=== PATIENT | female | born 1975 | race Caucasian/White ===

== ENCOUNTER 2020-02-09 17:21 | Inpatient (IN) | payer SELFPAY ==
[~2020-02-09] VITALS: Ht 152.4 cm; Wt 93.0 kg
--- NOTE | 2020-02-09 17:38 | EKG ---
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
[2020-02-09 17:53] LABS: BASO % 0 % (0-3); EOS # 0.2 x10^3/uL (0.0-0.7); EOS % 3 % (0-3); HEMATOCRIT 42.6 % (36.0-47.0); LYMPH # 1.7 x10^3/uL (1.0-4.8); LYMPH % 24 % (24-48); MEAN CORPUSCULAR HEMOGLOBIN 30 pg (25-35); MEAN CORPUSCULAR HGB CONC 33 g/dL (31-37); MEAN CORPUSCULAR VOLUME 91 fL (79-100); MONO # 0.4 x10^3/uL (0.0-1.1); MONO % 5 % (0-9); NEUT # 4.8 x10^3uL (1.8-7.7); NEUT % 67 % (31-73); PLATELET COUNT 241 x10^3/uL (140-400); RED BLOOD COUNT 4.67 x10^6/uL (3.50-5.40); RED CELL DISTRIBUTION WIDTH 14.1 % (11.5-14.5); WHITE BLOOD COUNT 7.1 x10^3/uL (4.0-11.0)
[2020-02-09 18:41] LABS: CALCIUM 9.1 mg/dL (8.5-10.1); CREATININE 0.9 mg/dL (0.6-1.0); GFR 67.7; POTASSIUM 3.6 mmol/L (3.5-5.1)
--- NOTE | 2020-02-09 18:46 | PHYS DOC ---
Past History Past Medical History: No Pertinent History Past Surgical History: , Hysterectomy, Knee Replacement Alcohol Use: None Adult General Chief Complaint Chief Complaint: CHEST PAIN [facility] HPI Patient is a 44-year-old female who presents for chest pain. This is an acute on chronic phenomena. Patient reports having episodes of substernal chest pain that is sharp in nature without radiation that is waxed and waned for past 3 weeks. Reports episode today came on while at rest and has not dissipated. Nothing known makes better, activity makes worse. Patient has history of pericardial effusion which required pericardiocentesis approximately 2 years ago, she is uncertain of her of the source and/or cause of said pericardial effusion. She denies any invasive cardiac work-up in the past such as catheterization, she is unsure of past echocardiogram findings. She also admits to extensive family medical history of cardiovascular disease, reports numerous family members have had early cardiac deaths less than 60 years old and absence of any drug use. She does not have a history of passing out with physical activity, denies any tobacco or alcohol use or other illicit drug use Review of Systems Review of Systems Fourteen body systems of review of systems have been reviewed. See HPI for pertinent positives and negative responses, other roldan all other systems are negative, non-pertinent or non-contributory Allergies Allergies Allergies Coded Allergies Type Severity Reaction Last Updated Verified naproxen Allergy Unknown 02/09/20 Yes prednisone Allergy Unknown 02/09/20 Yes Physical Exam Physical Exam Constitutional: Well developed, well nourished, no acute distress, non-toxic appearance. HENT: Normocephalic, atraumatic, bilateral external ears normal, oropharynx moist, no oral exudates, nose normal. Eyes: PERRLA, EOMI, conjunctiva normal, no discharge. Neck: Normal range of motion, no tenderness, supple, no stridor. Cardiovascular: Heart rate regular, sinus rhythm, no murmurs rubs or gallops, chest wall nontender to palpation Lungs & Thorax: Bilateral breath sounds clear to auscultation Abdomen: Bowel sounds normal, soft, no tenderness, no masses, no pulsatile masses. Nonsurgical abdomen, no peritoneal signs Skin: Warm, dry, no erythema, no rash. Back: No tenderness, no CVA tenderness. Extremities: No tenderness, no cyanosis, no clubbing, ROM intact, no edema. Neurologic: Alert and oriented X 3, grossly normal motor & sensory function, no focal deficits noted. Psychologic: Affect normal, judgement normal, mood normal. Current Patient Data Vital Signs Vital Signs Date Time Temp Pulse Resp B/P (MAP) Pulse Ox O2 Delivery O2 Flow Rate FiO2 02/09/20 17:28 98.2 64 14 147/85 (105) 99 Room Air Lab Results Laboratory Tests Test 02/09/20 17:30 White Blood Count 7.1 x10^3/uL (4.0-11.0) Red Blood Count 4.67 x10^6/uL (3.50-5.40) Hemoglobin 14.0 g/dL (12.0-15.5) Hematocrit 42.6 % (36.0-47.0) Mean Corpuscular Volume 91 fL (79-100) Mean Corpuscular Hemoglobin 30 pg (25-35) Mean Corpuscular Hemoglobin Concent 33 g/dL (31-37) Red Cell Distribution Width 14.1 % (11.5-14.5) Platelet Count 241 x10^3/uL (140-400) Neutrophils (%) (Auto) 67 % (31-73) Lymphocytes (%) (Auto) 24 % (24-48) Monocytes (%) (Auto) 5 % (0-9) Eosinophils (%) (Auto) 3 % (0-3) Basophils (%) (Auto) 0 % (0-3) Neutrophils # (Auto) 4.8 x10^3uL (1.8-7.7) Lymphocytes # (Auto) 1.7 x10^3/uL (1.0-4.8) Monocytes # (Auto) 0.4 x10^3/uL (0.0-1.1) Eosinophils # (Auto) 0.2 x10^3/uL (0.0-0.7) Basophils # (Auto) 0.0 x10^3/uL (0.0-0.2) Sodium Level 142 mmol/L (136-145) Potassium Level 3.6 mmol/L (3.5-5.1) Chloride Level 106 mmol/L (98-107) Carbon Dioxide Level 29 mmol/L (21-32) Anion Gap 7 (6-14) Blood Urea Nitrogen 7 mg/dL (7-20) Creatinine 0.9 mg/dL (0.6-1.0) Estimated GFR (Cockcroft-Gault) 67.7 BUN/Creatinine Ratio 8 (6-20) Glucose Level 97 mg/dL (70-99) Calcium Level 9.1 mg/dL (8.5-10.1) Total Bilirubin Pending Aspartate Amino Transferase (AST) Pending Alanine Aminotransferase (ALT) Pending Alkaline Phosphatase Pending Total Protein Pending Albumin Pending Albumin/Globulin Ratio Pending EKG EKG EKG ordered and interpreted by off going physician and confirmed by myself as sinus rhythm at 65 bpm, unremarkable intervals, left axis deviation, no ischemic findings, no STEMI Radiology/Procedures Radiology/Procedures PROCEDURE: CHEST AP ONLY Exam: Chest one view INDICATION: Chest pain TECHNIQUE: Frontal view of the chest Comparisons: None FINDINGS: Heart is mildly enlarged. Pulmonary vessels are within normal limits. The lung and pleural spaces are clear. IMPRESSION: No acute pulmonary process. Electronically signed by: Antonio Black MD (02/09/2020 7:08 PM) [facility] Heart Score HEART Score for Chest Pain: HEART Score for Chest Pain Response (Comments) Value History Moderately Suspicious 1 ECG Normal 0 Age >45 - < 65 1 Risk Factors >3 Risk Factors or Hx CAD 2 Troponin < Normal Limit 0 Total 4 Risk Factors: Risk Factors: DM, Current or recent (<one month) smoker, HTN, HLP, family history of CAD, obesity. Risk Scores: Risk Factors: DM, Current or recent (<one month) smoker, HTN, HLP, family history of CAD, obesity. Course & Med Decision Making Course & Med Decision Making Ambulatory generally nontoxic appearing patient seen on ER arrival ABCs nonconcerning Comprehensive history and physical exam obtained, subsequent diagnostic work-up ordered Patient continued to be symptomatic throughout visit without any obvious cause of chest pain I discussed grossly negative work-up with patient but given risk, joint decision was made to admit for overnight cardiovascular observation with consideration for cardiology consultation in the morning Dr. Gomez was contacted and case discussed, he agreed to admit patient for continued medical management at [facility] Patient updated on this and was agreeable, all questions and concerns addressed prior to ER departure to [facility] for observation in stable condition Zeke Disclaimer Dragon Disclaimer This electronic medical record was generated, in whole or in part, using a voice recognition dictation system. Departure Departure: Impression: Primary Impression: Chest pain, rule out acute myocardial infarction Disposition: 09 ADMITTED INPT THIS HOSP ([facility]) Admitting Physician: Dank Gomez Condition: STABLE Referrals: PCP,NO (PCP) JOSI SWANN DO Feb 09, 2020 18:46
[2020-02-09 18:47] LABS: ALBUMIN 3.5 g/dL (3.4-5.0); ALBUMIN/GLOBULIN RATIO 0.9 (1.0-1.7); TOTAL BILIRUBIN 0.2 mg/dL (0.2-1.0); TOTAL PROTEIN 7.3 g/dL (6.4-8.2)
--- NOTE | 2020-02-09 19:11 | RAD ---
Exam: Chest one view INDICATION: Chest pain TECHNIQUE: Frontal view of the chest Comparisons: None FINDINGS: Heart is mildly enlarged. Pulmonary vessels are within normal limits. The lung and pleural spaces are clear. IMPRESSION: No acute pulmonary process. Electronically signed by: Antonio Black MD (02/09/2020 7:08 PM) MARY
[2020-02-09] MEDS ORDERED: ACETAMINOPHEN 325 MG TABLET PO ONE ×2 (19:30→19:36)
[2020-02-09] MEDS ORDERED: ONDANSETRON PF 4 MG/2 ML VIAL. IVP PRN (20:00)
[2020-02-09] MEDS ORDERED: NITROGLYCERIN SUBLINGUAL 0.4 MG BOTTLE OF 25. SL PRN (20:00)
[2020-02-09] MEDS ORDERED: ACETAMINOPHEN 325 MG TABLET PO PRN (20:00)
--- NOTE | 2020-02-09 21:08 | NUR ---
Pt admitted to 117 via EMS accompanied by ED staff. Pt was able to ambulate from gurney to bed w/o difficulty. During assessment pt. had complaints of chest pain. Pain rated 8/[address] notified, 4mg Morphine PRN Q4hrs ordered. Pt appears to be calm and cooperative during assessment. POC discussed w/ verbal understanding. Pt orientated to . Call light is now in reach and will continue to monitor.
[2020-02-09 21:28] VITALS: BP 112/76
[2020-02-09] MEDS: MORPHINE SULFATE 4 MG/ML DISP.SYRIN. IV PRN (22:13)
[2020-02-09 23:11] VITALS: BP 110/76
[2020-02-10] MEDS: MORPHINE SULFATE 4 MG/ML DISP.SYRIN. IV PRN (02:23)
[2020-02-10 04:55] VITALS: BP 106/72
[2020-02-10] MEDS ORDERED: ASPIRIN CHEWABLE 81 MG TABLET. PO SCH (08:00)
[2020-02-10] MEDS ORDERED: FLU VACC QS 2020-21(6MOS+)/PF 0.5 ML SYRINGE. VAX IM ONE (08:00)
--- NOTE | 2020-02-10 10:02 | NUR ---
NURSING NOTE CONSULT WAS TOLD IN REPORT THAT CONSULT WAS CALLED, NO ORDER FOR CONSULT CARDIOLOGY. JACQUELINE OCHOA NOTIFIED, HERE TO EVALUATE PT. ORDER PLACED FOR CHEST PAIN. AUDREY COREA.
--- NOTE | 2020-02-10 10:07 | PDOC2 ---
CARDIAC CONSULT DATE OF CONSULT DOS: DATE: 02/10/20 TIME: 10:02 REASON FOR CONSULT Reason for Consult Chest pain REFERRING PHYSICIAN Referring Physician Dr. Head SOURCE Source: Chart review, Patient HPI History of Present Illness This is a yo female who presented secondary to chest pain. Patient reports pain has been intermittent for the last week. Was worse yesterday, so she came into the ED for further evaluation and treatment. Located in her left chest and under her left breast. Describes as sharp, stabbing pain. Associated with mild SOA. No dizziness, diaphoresis, palpitations, or nausea/vomiting. No specific worsening or relieving factors. Reports history of pericarditis/pericardial effusion s/p peric ardiocentesis/drain placement. Patients reports pain to be very similar to what she experienced previously with pericarditis. Was treated at [facility] on the [address] 2 years ago. Unfortunately, does no have insurance coverage and has not followed up with their data governance analyst team. Medication also ran out and she has not had them refilled. PAST MEDICAL HISTORY Cardiovascular: Other (pericardial effusion requiring pericardiocentesis ) Pulmonary: Other (JACOB not compliant with CPAP) Heme/Onc: Cancer (uterine ) PAST SURGICAL HISTORY Past Surgical History: Hysterectomy FAMILY HISTORY Family History: Heart Disease SOCIAL HISTORY Smoke: No ALCOHOL: none Drugs: None Lives: with Family CURRENT MEDICATIONS Current Medications Current Medications Acetaminophen (Tylenol) 650 mg 1X ONCE PO Last administered on 02/09/20at 19:30; Start 02/09/20 at 19:30; Stop 02/09/20 at 19:36; Status DC Acetaminophen (Tylenol) 325 mg STK-MED ONCE PO ; Start 02/09/20 at 19:36; Stop 02/09/20 at 19:36; Status DC Ondansetron HCl (Zofran) 4 mg PRN Q4HRS PRN IVP NAUSEA/VOMITING; Start 02/09/20 at 20:00; Stop 02/10/20 at 19:59 Acetaminophen (Tylenol) 650 mg PRN Q4HRS PRN PO FEVER > 100.3'F; Start 02/09/20 at 20:00; Stop 02/10/20 at 19:59 Nitroglycerin (Nitrostat) 0.4 mg PRN Q5MIN PRN SL CHEST PAIN; Start 02/09/20 at 20:00; Stop 02/10/20 at 19:59 Morphine Sulfate (Morphine 4mg Syringe) 4 mg PRN Q4HRS PRN IV PAIN Last administered on 02/10/20at 02:23; Start 02/09/20 at 22:00 Aspirin (Aspirin Chewable) 81 mg DAILYWBKFT PO Last administered on 02/10/20at 08:33; Start 02/10/20 at 08:00 Influenza Virus Vaccine Quadrival (Fluzone Quad [id number] Syringe) 0.5 ml ONCE ONCE VAX IM Last administered on 02/10/20at 08:33; Start 02/10/20 at 08:00; Stop 02/10/20 at 08:01; Status DC ALLERGIES Allergies: Coded Allergies: naproxen (Verified Allergy, Unknown, 02/09/20) prednisone (Verified Allergy, Unknown, 02/09/20) ROS Review of Systems 14 point ROS conducted with pertinent positives noted above in hPI PHYSICAL EXAM General: Alert, Oriented X3, Cooperative, No acute distress HEENT: Atraumatic, Mucous membr. moist/pink Lungs: Clear to auscultation, Other (left chest tenderness upon palpitation) Heart: Regular rate Abdomen: Soft, No tenderness Extremities: No edema, Normal pulses Skin: No breakdown Neuro: Normal speech, Sensation intact Psych/Mental Status: Mental status NL, Mood NL MUSCULOSKELETAL: No deformity VITALS Vital Signs Vital Signs Date Time Temp Pulse Resp B/P (MAP) Pulse Ox O2 Delivery O2 Flow Rate FiO2 02/10/20 08:48 Room Air 02/10/20 04:55 98.0 60 20 106/72 (83) 97 LABS LABS Laboratory Tests Test 02/09/20 17:30 02/09/20 22:23 02/10/20 03:15 White Blood Count 7.1 x10^3/uL (4.0-11.0) Red Blood Count 4.67 x10^6/uL (3.50-5.40) Hemoglobin 14.0 g/dL (12.0-15.5) Hematocrit 42.6 % (36.0-47.0) Mean Corpuscular Volume 91 fL (79-100) Mean Corpuscular Hemoglobin 30 pg (25-35) Mean Corpuscular Hemoglobin Concent 33 g/dL (31-37) Red Cell Distribution Width 14.1 % (11.5-14.5) Platelet Count 241 x10^3/uL (140-400) Neutrophils (%) (Auto) 67 % (31-73) Lymphocytes (%) (Auto) 24 % (24-48) Monocytes (%) (Auto) 5 % (0-9) Eosinophils (%) (Auto) 3 % (0-3) Basophils (%) (Auto) 0 % (0-3) Neutrophils # (Auto) 4.8 x10^3uL (1.8-7.7) Lymphocytes # (Auto) 1.7 x10^3/uL (1.0-4.8) Monocytes # (Auto) 0.4 x10^3/uL (0.0-1.1) Eosinophils # (Auto) 0.2 x10^3/uL (0.0-0.7) Basophils # (Auto) 0.0 x10^3/uL (0.0-0.2) Sodium Level 142 mmol/L (136-145) Potassium Level 3.6 mmol/L (3.5-5.1) Chloride Level 106 mmol/L (98-107) Carbon Dioxide Level 29 mmol/L (21-32) Anion Gap 7 (6-14) Blood Urea Nitrogen 7 mg/dL (7-20) Creatinine 0.9 mg/dL (0.6-1.0) Estimated GFR (Cockcroft-Gault) 67.7 BUN/Creatinine Ratio 8 (6-20) Glucose Level 97 mg/dL (70-99) Calcium Level 9.1 mg/dL (8.5-10.1) Total Bilirubin 0.2 mg/dL (0.2-1.0) Aspartate Amino Transf (AST/SGOT) 22 U/L (15-37) Alanine Aminotransferase (ALT/SGPT) 29 U/L (14-59) Alkaline Phosphatase 33 U/L (46-116) Troponin I Quantitative < 0.017 ng/mL (0-0.055) < 0.017 ng/mL (0-0.055) < 0.017 ng/mL (0-0.055) Total Protein 7.3 g/dL (6.4-8.2) Albumin 3.5 g/dL (3.4-5.0) Albumin/Globulin Ratio 0.9 (1.0-1.7) Lipase 66 U/L (73-393) ASSESSMENT/PLAN Assessment/Plan 1. Chest pain, atypical. AMI ruled out. Patient reports pain to be similar to what she experienced previously with pericarditis. Hemodynamically stable. 2. H/o pericardial effusion requiring pericardiocentesis in 2018. Treated at [facility]. Has had no cardiology followup since. 3. JACOB; noncompliant with CPAP 4. H/o uterine CA Recommendations Will obtain echo to assess LV systolic function, presence of recurrent pericardial effusion May use NSAID If echo WNL, may discharge from a CV standpoint JACQUELINE VERDUZCO APRN Feb 10, 2020 10:07
[2020-02-10 10:55] VITALS: BP 99/72
--- NOTE | 2020-02-10 11:29 | NUR ---
NURSING NOTE PT C/O NAUSEA, STATES WHEN THIS HAPPENS IF SHE CAN MAKE HERSELF VOMIT IT GIVES HER RELIEF, HOWEVER, PT REQUESTING NAUSEA MEDICATION AT THIS TIME, PRN ZOFRAN GIVEN. WILL CONTINUE TO MONITOR. AUDREY COREA.
--- NOTE | 2020-02-10 14:00 | HP ---
ADMIT DATE: 02/10/2020 HISTORY OF PRESENT ILLNESS: The patient is a 44-year-old female patient who presented to the Emergency Room of [facility] with a complaint of chest pain. According to the patient, this is an acute on chronic phenomenon. The patient reports having episodes of substernal chest pain that is sharp in nature without radiation. It is waxed and waned for the last 2 weeks. Reports episode today came on while at rest and has not dissipated, nothing known makes her better, activity makes it worse. She apparently has history of pericardial effusion that required pericardiocentesis approximately 2 years ago. She is uncertain as of the cause of that pericardial effusion and apparently she was admitted to [facility] at the [place] where they did pericardiocentesis and was there for almost 8 days. According to her, they drained about 2 liters of fluids around her heart and was discharged home. She apparently has not seen any frame stylist, had any followup echocardiogram since that time. She also admits to extensive family medical history of cardiovascular disease, particularly in her mother's side and therefore, the patient was admitted and has had 3 sets of cardiac enzymes. We did actually consult the frame stylist and arrangement was made for her to have an echocardiogram prior to her discharge. PAST MEDICAL HISTORY: Significant for pericardial effusion requiring pericardiocentesis. She has also morbid obesity, obstructive sleep apnea and she had also ovarian cancer. PAST SURGICAL HISTORY: Significant for 3 C-sections, total abdominal hysterectomy and 2 knee surgeries, one was laparoscopic and one for knocked knees done in [place]. FAMILY HISTORY: Positive for her mom having hypertension, hyperlipidemia, type 2 diabetes, and coronary artery disease requiring PCI with stent deployment. Her mother is a smoker; however, she is very healthy and her brother is younger and apparently healthy. SOCIAL HISTORY: She is , has 3 children. She never smoked, does not drink alcohol or use any recreational drugs. She is mostly ueiq-zv-rbur mom; however, she got a job at [employer]. REVIEW OF SYSTEMS: The patient denied any blurring of vision, cataract, glaucoma or macular degeneration. Denied any earache, tinnitus or sensorineural deafness. Denied any nosebleeds, stuffy nose or postnasal drip. Denied any sore throat, sore tongue, toothache, hoarseness of voice or difficulty swallowing. Denied any nausea, vomiting, diarrhea or constipation. Denied any hematemesis, melena or hematochezia. Denied any dysuria, frequency or hematuria. Did complain obviously of chest pain and shortness of breath. PHYSICAL EXAMINATION: GENERAL: On arrival to the Emergency Room, she looked well and was clearly in no apparent respiratory distress. No pallor, jaundice, cyanosis or thyromegaly. No jugular venous distention. No limb edema. VITAL SIGNS: Her heart rate was 57, blood pressure was 112/76, temperature 98.5, respiratory rate 20, and oxygen saturation was 98%. HEAD, EYES, EARS, NOSE AND THROAT: Showed she is normocephalic, atraumatic. NECK: Supple. HEART: Showed normal first and second heart sounds. No gallop, rub or murmur. CHEST: Clear to auscultation. No crepitation or rhonchi. ABDOMEN: Distended, soft, nontender. NEUROLOGIC: She is awake, alert, responding appropriately. All her cranial nerves intact. EXTREMITIES: She moves extremities without difficulty. She apparently ambulates without assistance or assistive devices. She does have what seemed to be mild bilateral ptosis. LABORATORY DATA: Her lab work showed a white cell count 7100, hemoglobin 14, hematocrit 42, MCV 91, and platelet count of 241,000. Serum sodium was 142, potassium 3.6, chloride 106, bicarbonate 29, anion gap of 7, BUN 7, creatinine 0.9, estimated GFR was 76 mL per minute. Her glucose was 97, calcium was 9.1. Total bilirubin, AST, ALT, alkaline phosphatase were normal. Her first set of cardiac enzymes showed troponin to be less than 0.017. Her total protein 7.3, albumin 3.6 and lipase was 66. PLAN: Admit the patient to do 2 more sets of cardiac enzyme, consult the Cardiology and decide further management accordingly. JUNIOR SPENCER MD DR: HEVER/gee JOB#: [id number] / [id number]
[2020-02-10 15:13] VITALS: BP 106/70
--- NOTE | 2020-02-10 17:03 | NUR ---
NURSING NOTE PER DR GOMEZ, PT ECHO LOOKS GOOD, PT CLEARED BY CARDIOLOGY TO DISCHARGE HOME. DR SPENCER NOTIFIED. AUDREY COREA.
--- NOTE | 2020-02-10 17:04 | CARD ---
MR#: [id number] Date of Study: 02/10/2020 Ordering Physician: JACQUELINE VERDUZCO, Referring Physician: JACQUELINE VERDUZCO, Tech: Isha Zapata RDCS APPROVED REPORT EXAM: Two-dimensional and M-mode echocardiogram with Doppler and color Doppler. Other Information Quality : Fair INDICATION Chest Pain RISK FACTORS Obesity 2D DIMENSIONS RVDd2.4 (2.9-3.5cm)Left Atrium(2D)3.3 (1.6-4.0cm) IVSd1.1 (0.7-1.1cm)Aortic Root(2D)2.6 (2.0-3.7cm) LVDd3.5 (3.9-5.9cm)LVOT Diameter2.0 (1.8-2.4cm) PWd1.0 (0.7-1.1cm)LVDs2.7 (2.5-4.0cm) FS (%) 30.0 %SV22.5 ml LVEF(%)60.0 (>50%) Aortic Valve AoV Peak Christopher.158.8cm/sAoV VTI26.0cm AO Peak GR.10.1mmHgAO Mean GR.5mmHg HESHAM (VTI)2.45cm2 Mitral Valve MV E Nqobevkz39.4cm/sMV DECEL [id number] MV A Xvvbfceh75.7cm/sE/A Ratio1.4 LEFT VENTRICLE The left ventricle is normal size. There is normal left ventricular wall thickness. The left ventricu lar systolic function is normal and the ejection fraction is within normal range. The Ejection Fracti on is 55-60%. There is normal LV segmental wall motion. The left ventricular diastolic function and f illing is normal for age. RIGHT VENTRICLE The right ventricle is normal size. The right ventricular systolic function is normal. ATRIA The left atrium size is normal. The right atrium size is normal. The interatrial septum is intact wit h no evidence for an atrial septal defect or patent foramen ovale as noted on 2-D or Doppler imaging. AORTIC VALVE The aortic valve is normal in structure and function. Doppler and Color Flow revealed no significant aortic regurgitation. There is no significant aortic valvular stenosis. MITRAL VALVE The mitral valve is normal in structure and function. There is no evidence of mitral valve prolapse. There is no mitral valve stenosis. Doppler and Color Flow revealed no mitral valve regurgitation note d. TRICUSPID VALVE The tricuspid valve is normal in structure and function. Doppler and Color Flow revealed no tricuspid valve regurgitation noted. There is no tricuspid valve stenosis. PULMONIC VALVE The pulmonic valve is not well visualized. Doppler and Color Flow revealed no pulmonic valvular regur gitation. There is no pulmonic valvular stenosis. GREAT VESSELS The aortic root is normal in size. The ascending aorta is mildly dilated at 3.5 cm. The IVC is normal in size and collapses >50% with inspiration. PERICARDIAL EFFUSION There is no evidence of significant pericardial effusion. Critical Notification Critical Value: No <Conclusion> The left ventricular systolic function is normal and the ejection fraction is within normal range. Th e Ejection Fraction is 55-60%. There is normal LV segmental wall motion. The ascending aorta is mildly dilated at 3.5 cm. Signed by : Asa Madison, Electronically Approved : 02/10/2020 17:03:41
[2020-02-10] MEDS ORDERED: ASPI-630 PO (17:13)
--- NOTE | 2020-02-10 17:27 | DS ---
DATE OF DISCHARGE: HOSPITAL COURSE: The patient was admitted with chest pain that is sharp in nature, substernal, it waxed and waned for the last 2 weeks. She apparently has had a history of what seemed to be pericardial effusion and perhaps pericardial tamponade that required pericardiocentesis about 2 years ago, done at [facility] and she stayed there for about 8 days. According to her, they drained about 2 liters of fluid around her heart. Apparently, she has not had any followup since then. She has had 3 sets of cardiac enzymes; showed that her troponins were normal. She was seen in consultation by the Cardiology and apparently has had an echocardiogram done, which basically showed that her left ventricular systolic function is normal, ejection fraction is within normal range. Ejection fraction was 55-60%. There is normal left ventricular segmental wall motion. The ascending aorta is mildly dilated at 3.5 cm, but apparently there was no significant pericardial effusion and the patient was discharged home. PHYSICAL EXAMINATION: GENERAL: When I saw her this afternoon, she looked well and was clearly in no apparent respiratory distress. No pallor, jaundice, cyanosis or thyromegaly. No jugular venous distention or limb edema. VITAL SIGNS: Her heart rate was 70, blood pressure was 106/70, temperature 97.9, respiratory rate 20 and oxygen saturation was 94%. LABORATORY DATA: Rest of the clinical exam stable. Three sets of cardiac enzymes ruled out acute myocardial infarction and her echocardiogram showed she has normal left ventricular systolic function with a normal ejection fraction of 50-60%. FINAL DISCHARGE DIAGNOSIS: Atypical chest pain. The patient was discharged home to go on baby aspirin 81 mg once a day and to follow with her primary care physician. JUNIOR SPENCER MD DR: HEVER/gee JOB#: [id number] / [id number]
--- NOTE | 2020-02-10 18:03 | NUR ---
NURSING NOTE DISCHARGE PT DISCHARGED HOME VIA AMBULATION PICKED UP BY . PT GIVEN WRITTEN AND VERBAL DISCHARGE INSTRUCTIONS. PT INSTRUCTED TO TAKE A DAILY ASPIRIN 81 MG OTC. PT INSTRUCTED TO FOLLOW UP WITH PCP IN 7-10 DAYS OR SOONER IF NEEDED WELL CARDIOLOGY. PT STATES SHE IS TRYING TO GET ON HER HUSBANDS INSURANCE AND WILL FOLLOW UP WHEN SHE GETS INSURANCE. NO COMPLICATIONS. AUDREY COREA.
== END 2020-02-10 18:08 | disposition home or self-care (01) | DRG 313 ==
LOC: ER 17:21 → OBSVTOIN 20:40 → 1 SOUTH 20:40
PROVIDERS: ADMIT Hospitalist; ATTEND Internal Medicine
DX: R07.89 Other chest pain (principal); I31.3 Pericardial effusion (noninflammatory); Z68.41 Body mass index [BMI] 40.0-44.9, adult; G47.33 Obstructive sleep apnea (adult) (pediatric); Z96.659 Presence of unspecified artificial knee joint; E66.01 Morbid (severe) obesity due to excess calories; I25.10 Atherosclerotic heart disease of native coronary artery without angina pectoris; Z82.49 Family history of ischemic heart disease and other diseases of the circulatory system; Z83.3 Family history of diabetes mellitus; Z85.42 Personal history of malignant neoplasm of other parts of uterus; Z85.43 Personal history of malignant neoplasm of ovary; Z90.710 Acquired absence of both cervix and uterus; Z91.19 Patient's noncompliance with other medical treatment and regimen; Z88.8 Allergy status to other drugs, medicaments and biological substances
CPT/HCPCS: 36415; 71045; 80053; 83690; 84484; 85025; 90471; 93005; 93306; J2270; J2405; 90686; 99285-25

== ENCOUNTER 2020-11-02 11:20 | Emergency (ER) | payer SELFPAY ==
[~2020-11-02] VITALS: Ht 167.6 cm; Wt 89.2 kg
[~2020-11-02 11:20] MED LIST: ASPI-630 PO
[2020-11-02 12:04] VITALS: BP 114/79
[2020-11-02] MEDS ORDERED: IOHEXOL 240 MG/ML 50ML VIAL. ONE (12:10)
[2020-11-02] MEDS ORDERED: IOHEXOL 300 MG/ML 75 ML VIAL. IV ONE (12:15)
[2020-11-02] MEDS ORDERED: CONTRAST GIVEN. MC PRN (12:15)
[2020-11-02] MEDS ORDERED: IOHEXOL 240 MG/ML 50ML VIAL. PO ONE (12:15)
[2020-11-02 12:17] LABS: BASO # 0.1 x10^3/uL (0.0-0.2); BASO % 1 % (0-3); EOS # 0.1 x10^3/uL (0.0-0.7); EOS % 1 % (0-3); HEMATOCRIT 42.7 % (36.0-47.0); HEMOGLOBIN 14.2 g/dL (12.0-15.5); LYMPH # 6.9 x10^3/uL (1.0-4.8); LYMPH % 63 % (24-48); MEAN CORPUSCULAR HEMOGLOBIN 29 pg (25-35); MEAN CORPUSCULAR HGB CONC 33 g/dL (31-37); MEAN CORPUSCULAR VOLUME 88 fL (79-100); MONO # 0.8 x10^3/uL (0.0-1.1); MONO % 7 % (0-9); NEUT # 3.2 x10^3uL (1.8-7.7); NEUT % 29 % (31-73); PLATELET COUNT 210 x10^3/uL (140-400); RED BLOOD COUNT 4.83 x10^6/uL (3.50-5.40); RED CELL DISTRIBUTION WIDTH 15.7 % (11.5-14.5); WHITE BLOOD COUNT 11.1 x10^3/uL (4.0-11.0)
[2020-11-02 12:44] LABS: % ATYL 48 % (0-0); % BANDS 8 % (0-9); % LYMPHS 14 % (24-48); % MONOS 3 % (0-10); % SEGS 27 % (35-66)
[2020-11-02 12:45] LABS: CALCIUM 8.8 mg/dL (8.5-10.1); CREATININE 0.9 mg/dL (0.6-1.0); GFR 67.7; PLT ESTIMATE ADEQUATE (ADEQUATE); POTASSIUM 3.9 mmol/L (3.5-5.1)
[2020-11-02 12:56] LABS: ALBUMIN 3.2 g/dL (3.4-5.0); ALBUMIN/GLOBULIN RATIO 0.9 (1.0-1.7); TOTAL BILIRUBIN 0.3 mg/dL (0.2-1.0); TOTAL PROTEIN 6.8 g/dL (6.4-8.2)
[2020-11-02] MEDS ORDERED: IV NORMAL SALINE 1,000ML 1,000 ML IV ONE (14:00)
--- NOTE | 2020-11-02 14:01 | RAD ---
PQRS Compliance Statement: One or more of the following individualized dose reduction techniques were utilized for this examinat ion: 1. Automated exposure control 2. Adjustment of the mA and/or kV according to patient size 3. Use of iterative reconstruction technique Exam performed: CT abdomen and pelvis with contrast HISTORY: Abdominal pain, fever DATE OF SERVICE: 11/02/2020. COMPARISON: None available TECHNIQUE: Contiguous helical acquisitions are obtained through the abdomen and pelvis during intrave nous administration of IV contrast. Sagittal and coronal reformatted images are obtained and reviewed . FINDINGS: The lung bases are clear. The visualized heart is normal. The liver, gallbladder, spleen and pancreas appears normal. Both adrenal glands and bilateral kidneys are normal in size with symmetric excretion of contrast via both kidneys. Right inferior renal pole cyst. There is no hydronephrosis or nephrolithiasis. Aorta is normal in caliber without aneurysm. No retroperitoneal or mesenteric lymphadenopathy is seen. The small bowel loops are nondilated and unrem arkable. The visualized appendix is normal. No inflammatory changes seen in the right lower quadrant. There is long segment wall thickening of the sigmoid colon and rectum. There is a well-defined low attenuating mass measuring 4.0 x 3.8 x 1.9 cm in maximum AP, transverse a nd cranial caudal dimension in the midline to right lower abdomen adjacent to several loops of small bowel. The urinary bladder is decompressed. The uterus is surgically absent. No free fluid is seen. I nterrogation of bone windows demonstrates no bony abnormalities. IMPRESSION: Long segment wall thickening of sigmoid colon and rectum. This could be secondary to collapse, howeve r mild colitis is not excluded. Correlate with clinical findings. Low attenuating round 4.0 x 3.8 cm mass in the midline to the lower abdomen, to the right of midline adjacent to loops of small bowel. Diagnostic considerations would include mesenteric cyst, paraovaria n cyst or necrotic lymph node. A pelvic ultrasound may be obtained to further evaluate. It is possibl e that this may not be visualized secondary to obscuration by bowel loops. Short-term interval follow -up CT abdomen pelvis may be obtained to ensure interval stability. Electronically signed by: Betty Elizabeth MD (11/02/2020 1:59 PM) [id number]
[2020-11-02 14:41] LABS: BILIRUBIN,URINE NEG (NEG); CLARITY,URINE CLEAR; COLOR,URINE YELLOW; GLUCOSE,URINE NEG (NEG); NITRITE,URINE NEG (NEG); UROBILINOGEN,URINE 0.2 mg/dL (0.2 mg/dL)
[2020-11-02 14:44] LABS: BACTERIA,URINE MOD /HPF (0-FEW); RBC,URINE RARE /HPF (0-2); SQUAMOUS EPITHELIAL CELL,UR MOD /LPF; WBC,URINE TNTC /HPF (0-4)
[2020-11-02 14:56] LABS: INFLUENZA A PATIENT NEGATIVE (NEGATIVE); INFLUENZA B PATIENT NEGATIVE (NEGATIVE)
[2020-11-02] MEDS ORDERED: AMOX1TAB61 PO (15:52)
[2020-11-02] MEDS ORDERED: ONDA4TAB12 PO (15:52)
--- NOTE | 2020-11-02 15:52 | PHYS DOC ---
Past History Past Medical History: No Pertinent History Past Surgical History: Hysterectomy Alcohol Use: None Adult General Chief Complaint Chief Complaint: GI PROBLEM HPI HPI Patient is a 44-year-old previously healthy female who presents to the emergency room complaining of fever, nausea, vomiting, diarrhea. Patient has had some mild coughing typically when she tries to take a deep breath. She denies any other coughing. She denies shortness of breath or chest pain. She states that last week she did have some sinus pressure as well as fever. She thought initially that she had a sinus infection. She has been ill for the last 8 days. She states that she is unable to eat anything due to significant nausea and vomiting. She states that she tries to eat anything at all she will vomit. She has been taking Tylenol for fevers without relief. Patient denies taking Tylenol more than 4 times in a day. Review of Systems Review of Systems Complete ROS is negative unless otherwise documented in HPI Current Medications Current Medications Current Medications Medications (Trade) Dose Ordered Sig/Jordin Start Time Stop Time Status Last Admin Dose Admin Info (Do NOT chart on this entry -- for MONITORING) 1 each PRN DAILY PRN 11/02/20 12:15 11/04/20 12:14 Iohexol (Omnipaque 240 Mg/ml) 50 ml 1X ONCE 11/02/20 12:15 11/02/20 12:16 DC 11/02/20 13:31 50 ML Iohexol (Omnipaque 300 Mg/ml) 75 ml 1X ONCE 11/02/20 12:15 11/02/20 12:16 DC 11/02/20 13:30 75 ML Sodium Chloride 1,000 ml @ 1,000 mls/hr 1X ONCE 11/02/20 14:00 11/02/20 14:59 DC 11/02/20 14:00 1,000 MLS/HR Allergies Allergies Allergies Coded Allergies Type Severity Reaction Last Updated Verified naproxen Allergy Unknown 02/09/20 Yes prednisone Allergy Unknown 02/09/20 Yes Physical Exam Physical Exam General: Awake, alert, NAD. Well Nourished, well hydrated. Cooperative HEENT: Atraumatic, EOMI, PERRL, airway patent, moist oral mucosa Neck: Supple, trachea midline Respiratory: CTA bilaterally, normal effort, no wheezing/crackles CV: RRR, no murmur, cap refill <2 GI: Soft, nondistended, epigastric tenderness, no masses MSK: No obvious deformities Skin: Warm, dry, intact Neuro: A&O x3, speech NL, sensory and motor grossly intact, no focal deficits Psych: Normal affect, normal mood, not suicidal or homicidal Current Patient Data Vital Signs Vital Signs Date Time Temp Pulse Resp B/P (MAP) Pulse Ox O2 Delivery O2 Flow Rate FiO2 11/02/20 12:04 101.4 103 20 114/79 93 Room Air Lab Results Laboratory Tests Test 11/02/20 11:56 11/02/20 14:05 11/02/20 14:06 White Blood Count 11.1 x10^3/uL (4.0-11.0) H Red Blood Count 4.83 x10^6/uL (3.50-5.40) Hemoglobin 14.2 g/dL (12.0-15.5) Hematocrit 42.7 % (36.0-47.0) Mean Corpuscular Volume 88 fL (79-100) Mean Corpuscular Hemoglobin 29 pg (25-35) Mean Corpuscular Hemoglobin Concent 33 g/dL (31-37) Red Cell Distribution Width 15.7 % (11.5-14.5) H Platelet Count 210 x10^3/uL (140-400) Neutrophils (%) (Auto) 29 % (31-73) L Lymphocytes (%) (Auto) 63 % (24-48) H Monocytes (%) (Auto) 7 % (0-9) Eosinophils (%) (Auto) 1 % (0-3) Basophils (%) (Auto) 1 % (0-3) Neutrophils # (Auto) 3.2 x10^3uL (1.8-7.7) Lymphocytes # (Auto) 6.9 x10^3/uL (1.0-4.8) H Monocytes # (Auto) 0.8 x10^3/uL (0.0-1.1) Eosinophils # (Auto) 0.1 x10^3/uL (0.0-0.7) Basophils # (Auto) 0.1 x10^3/uL (0.0-0.2) Segmented Neutrophils % 27 % (35-66) L Band Neutrophils % 8 % (0-9) Lymphocytes % 14 % (24-48) L Atypical Lymphocytes % (Manual) 48 % (0-0) H Monocytes % 3 % (0-10) Platelet Estimate Adequate (ADEQUATE) Sodium Level 145 mmol/L (136-145) Potassium Level 3.9 mmol/L (3.5-5.1) Chloride Level 109 mmol/L (98-107) H Carbon Dioxide Level 27 mmol/L (21-32) Anion Gap 9 (6-14) Blood Urea Nitrogen 11 mg/dL (7-20) Creatinine 0.9 mg/dL (0.6-1.0) Estimated GFR (Cockcroft-Gault) 67.7 BUN/Creatinine Ratio 12 (6-20) Glucose Level 115 mg/dL (70-99) H Lactic Acid Level 1.7 mmol/L (0.4-2.0) Calcium Level 8.8 mg/dL (8.5-10.1) Total Bilirubin 0.3 mg/dL (0.2-1.0) Aspartate Amino Transferase (AST) 165 U/L (15-37) H Alanine Aminotransferase (ALT) 241 U/L (14-59) H Alkaline Phosphatase 143 U/L (46-116) H Total Protein 6.8 g/dL (6.4-8.2) Albumin 3.2 g/dL (3.4-5.0) L Albumin/Globulin Ratio 0.9 (1.0-1.7) L Lipase 94 U/L (73-393) Urine Collection Type Unknown Urine Color Yellow Urine Clarity Clear Urine pH 6.0 Urine Specific [place] 1.015 Urine Protein 30 mg/dl (NEG-TRACE) Urine Glucose (UA) Neg mg/dL (NEG) Urine Ketones (Stick) Neg mg/dL (NEG) Urine Blood Trace (NEG) Urine Nitrite Neg (NEG) Urine Bilirubin Neg (NEG) Urine Urobilinogen Dipstick 0.2 mg/dL (0.2 mg/dL) Urine Leukocyte Esterase Small (NEG) Urine RBC Rare /HPF (0-2) Urine WBC Tntc /HPF (0-4) Urine Squamous Epithelial Cells Mod /LPF Urine Bacteria Mod /HPF (0-FEW) Influenza Type A (Rapid) Negative (NEGATIVE) Influenza Type B (Rapid) Negative (NEGATIVE) EKG EKG [] Radiology/Procedures Radiology/Procedures [] Heart Score C/O Chest Pain: N/A Risk Factors: Risk Factors: DM, Current or recent (<one month) smoker, HTN, HLP, family history of CAD, obesity. Risk Scores: Risk Factors: DM, Current or recent (<one month) smoker, HTN, HLP, family history of CAD, obesity. Course & Med Decision Making Course & Med Decision Making Pertinent Labs and Imaging studies reviewed. (See chart for details) Patient is a 44-year-old female who presents to the emergency room complaining of fever, nausea, vomiting, diarrhea. Upon arrival to the emergency room patient is febrile and tachycardic. She does meet SIRS criteria. Infectious work-up was ordered including CBC, CMP, lipase, blood cultures, CT abdomen pelvis, UA. Patient does appear to have a significant UTI and CT shows colitis. I recommended to the patient that she be admitted, however patient states that she would like to go home and try oral antibiotics. We will place her on Augmentin to cover both her UTI and colitis. Patient had several other findings. She has some elevated liver enzymes. I have discussed these with the patient and have discussed with her that she needs to have repeat lab work done in the next 1 to 2 weeks. We have discussed signs of jaundice or liver dys function. Her liver and gallbladder appeared normal on her CT. CT did show some kind of mass or lesion. I discussed with her that she needs to have a repeat CT scan in the next 2 to 3 months. We discussed that if her fevers get worse, her symptoms get worse, or she does not start feeling better in the next couple of days she should return to the emergency room for admission. Dragon Disclaimer Dragon Disclaimer This electronic medical record was generated, in whole or in part, using a voice recognition dictation system. Departure Departure: Impression: Primary Impression: Colitis Additional Impressions: Pyelonephritis Elevated liver enzymes Disposition: HOME / SELF CARE / HOMELESS Condition: STABLE Referrals: PCP,NO (PCP) Patient Instructions: Colitis, Pyelonephritis, Adult Additional Instructions: You were seen today for fever with nausea and vomiting. At this time it appears that you have a kidney and colon infection. We are going to place you on Augmentin. We did recommend admission, however at this time you declined. If you change your mind you may return to the emergency room for admission. After taking the antibiotics over the next couple of days if you do not start to feel better you should return to the emergency room. We did do a Covid swab today and we will call you with the results. If your symptoms get worse or your fevers do not improve you should return to the emergency room. You should have your liver enzymes repeated in 1 week You should have a repeat CT of your abdomen done for the lesion seen in 2-3 months Scripts Ondansetron (ONDANSETRON ODT) 4 Mg Tab.rapdis 1 TAB PO PRN Q6-8HRS for nausea, #16 TAB Prov: COLE CUEVAS MD 11/02/20 Amoxicillin/Potassium Clav (AUGMENTIN 875-125 TABLET) 1 Each Tablet 1 TAB PO BID for pyelo for 10 Days, #20 TAB 0 Refills Prov: COLE CUEVAS MD 11/02/20 Problem Qualifiers COLE CUEVAS MD Nov 02, 2020 15:52
== END 2020-11-02 16:05 | disposition home or self-care (01) ==
LOC: ER 11:20
DX: K52.9 Noninfective gastroenteritis and colitis, unspecified (principal); N12 Tubulo-interstitial nephritis, not specified as acute or chronic; R74.8 Abnormal levels of other serum enzymes; Z20.822 Contact with and (suspected) exposure to COVID-19; Z88.6 Allergy status to analgesic agent; Z88.8 Allergy status to other drugs, medicaments and biological substances; Z90.710 Acquired absence of both cervix and uterus
CPT/HCPCS: 36415; 74177; 80053; 81001; 83605; 83690; 85007; 85025; 87040; 87086; 87804; 96360; 99285; C9803; J7030; Q9966; Q9967; U0003